=== PATIENT | female | born 2000 | race Caucasian/White ===

== ENCOUNTER 2020-10-31 09:29 | Emergency (ER) | payer OTHER ==
[2020-10-31 19:09] LABS: SARS-CoV-2 PCR by NAA DETECTED (NotDetected)
== END 2020-10-31 11:28 | disposition home or self-care (01) ==
LOC: ERS 09:29
DX: R43.2 Parageusia (principal); R43.0 Anosmia; R05 Cough; Z79.899 Other long term (current) drug therapy
CPT/HCPCS: 99283; U0003; U0005